=== PATIENT | male | born 1980 | race Hispanic/Latino ===

== ENCOUNTER 2017-08-11 02:20 | Emergency (ER) | payer BC ==
[2017-08-11 02:30] VITALS: PULSE 80
[2017-08-11] MEDS ORDERED: Lidocaine 2% Inj (20ml) INFIL ONE (03:18)
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
[2017-08-11] MEDS ORDERED: Lidocaine 2% Inj (20ml) ONE (03:23)
[2017-08-11 04:46] VITALS: BP 120/80; RESP 14; TEMP 97.8
[2017-08-11 06:56] VITALS: O2SAT 100
== END 2017-08-11 04:33 | disposition home or self-care (01) ==
LOC: C.ER 02:20
DX: S01.512A Laceration without foreign body of oral cavity, initial encounter (principal); Y04.0XXA Assault by unarmed brawl or fight, initial encounter; Y92.89 Other specified places as the place of occurrence of the external cause